=== PATIENT | female | born 1980 | race Two or more races ===

== ENCOUNTER → 2019-05-12 | Outpatient (CLI) | payer OTHER ==
[~2019-05-12] MED LIST: PRENATAL TABLE1 EAC1 PO
== END | disposition home or self-care (01) ==
LOC: MRI 08:45
DX: H90.3 Sensorineural hearing loss, bilateral (principal); R42 Dizziness and giddiness
CPT/HCPCS: 70553

== ENCOUNTER 2019-06-12 08:23 | Emergency (ER) | payer OTHER ==
[~2019-06-12] VITALS: Ht 157.5 cm; Wt 51.3 kg
[2019-06-12] MEDS ORDERED: CLARITIN10 M1 PO (08:37)
== END 2019-06-12 10:41 | disposition home or self-care (01) ==
LOC: ER 08:23
DX: S83.8X1A Sprain of other specified parts of right knee, initial encounter (principal); X50.0XXA Overexertion from strenuous movement or load, initial encounter; Y93.18 Activity, surfing, windsurfing and boogie boarding; Y92.832 Beach as the place of occurrence of the external cause; Y99.8 Other external cause status

== ENCOUNTER 2019-07-18 13:41 | Outpatient (CLI) | payer OTHER ==
[~2019-07-18 13:41] MED LIST changes: +CLARITIN10 M1 PO
== END 2019-07-18 13:49 | disposition home or self-care (01) ==
LOC: MRI 13:41
DX: M25.561 Pain in right knee (principal); S83.281D Other tear of lateral meniscus, current injury, right knee, subsequent encounter
CPT/HCPCS: 73721

== ENCOUNTER → 2020-11-18 13:23 | Outpatient (CLI) | payer OTHER | END | disposition home or self-care (01) | LOC: LAB 13:23 | PROVIDERS: ATTEND Pediatrics | DX: Z20.828 Contact with and (suspected) exposure to other viral communicable diseases (principal) ==

== ENCOUNTER 2020-12-14 10:26 | Outpatient (CLI) | payer OTHER | END 2020-12-14 10:49 | disposition home or self-care (01) | LOC: LAB 10:26 | PROVIDERS: ATTEND Pediatrics | DX: Z20.828 Contact with and (suspected) exposure to other viral communicable diseases (principal) ==

== ENCOUNTER 2021-01-09 12:02 | Outpatient (CLI) | payer OTHER | END 2021-01-09 12:25 | disposition home or self-care (01) | LOC: TOM 12:02 | PROVIDERS: ATTEND Allergy & Immunology | DX: J31.0 Chronic rhinitis (principal); J32.8 Other chronic sinusitis ==

== ENCOUNTER 2021-03-09 18:21 | Emergency (ER) | payer OTHER ==
[~2021-03-09] VITALS: Ht 157.5 cm; Wt 52.2 kg
[2021-03-09] MEDS ORDERED: WELLBUTRIN SR150 MG (18:40)
[2021-03-09] MEDS ORDERED: PERCOCET 5-3251 EACH PO (20:11)
== END 2021-03-09 20:37 | disposition home or self-care (01) ==
LOC: ER 18:21
DX: S22.31XA Fracture of one rib, right side, initial encounter for closed fracture (principal); W10.8XXA Fall (on) (from) other stairs and steps, initial encounter; Y93.18 Activity, surfing, windsurfing and boogie boarding; Y92.832 Beach as the place of occurrence of the external cause; Y99.8 Other external cause status

== ENCOUNTER 2021-12-24 08:44 | Outpatient (CLI) | payer OTHER ==
[~2021-12-24 08:44] MED LIST changes: +PERCOCET 5-3251 EACH PO; +WELLBUTRIN SR150 MG
== END 2021-12-24 09:01 | disposition home or self-care (01) ==
LOC: MAMO-SONO 08:44
PROVIDERS: ATTEND Obstetrics & Gynecology
DX: Z12.31 Encounter for screening mammogram for malignant neoplasm of breast (principal); N63.21 Unspecified lump in the left breast, upper outer quadrant; N63.12 Unspecified lump in the right breast, upper inner quadrant

== ENCOUNTER 2023-02-02 09:27 | Outpatient (CLI) | payer OTHER | END 2023-02-02 09:38 | disposition home or self-care (01) | LOC: MAMO-SONO 09:27 | PROVIDERS: ATTEND Pediatrics | DX: N60.11 Diffuse cystic mastopathy of right breast (principal); Z12.31 Encounter for screening mammogram for malignant neoplasm of breast ==

== ENCOUNTER 2025-03-19 09:13 | Outpatient (CLI) | payer OTHER | END 2025-03-19 09:18 | disposition home or self-care (01) | LOC: RAD 09:13 | PROVIDERS: ATTEND Pediatrics | DX: S93.402A Sprain of unspecified ligament of left ankle, initial encounter (principal) ==